=== PATIENT | male | born 1955 | race Caucasian/White ===

== ENCOUNTER 2023-05-01 07:00 | Outpatient (CLI) | payer MEDICARE, SELFPAY ==
--- NOTE | 2023-05-01 07:15 | MR_ITS ---
[address] [address] Phone:?[phone] Fax:?[phone] Referring Physician Information: Shelton Sibley M.D. [id number] [facility] [place] [address] Phone:?[phone] Fax:?[phone] Patient:Lola Upton D.O.B:?1955 Sex:?Male Phone:? [facility] MRN:?[id number] Exam Date:?05/01/2023 EXAM: MRI of the RIGHT SHOULDER, without contrast CLINICAL HISTORY: Right shoulder pain. Concern for rotator cuff tear. COMPARISONS: Plain radiographs 04/21/2023. TECHNICAL: MRI sequences of the right shoulder: Axials: PD, T2 Coronals: PD, STIR, T2 Sagittals: PD, T2 SEDATION: None CONTRAST: None FINDINGS: Bones: No fracture or suspicious bone marrow signal abnormality. Coracoacromial arch: Acromion: No os acromiale. Type I-II acromion. Acromiohumeral space: The bony distance is unremarkable. Acromioclavicular joint: Moderate degenerative changes with moderate inferior osteophytosis. Coracoclavicular ligament: The coracoclavicular ligament is intact. Rotator cuff muscles/tendons: Supraspinatus: There is a complete full-thickness tear of the supraspinatus tendon insertion with proximal/medial tendon retraction to the level of the mid humeral head. No atrophy of the supraspinatus muscle. Infraspinatus: Interstitial delamination and moderate tendinopathy of the infraspinatus tendon. No muscular atrophy. Teres minor: The teres minor tendon and muscle are intact. Subscapularis: Ill-definition, irregularity, and moderate attenuation of the superior portion of the subscapularis tendon measuring 3.0 cm in craniocaudad dimension are findings consistent with ill-defined moderate grade intrasubstance/interstitial partial tearing. No muscular atrophy. Labrum and glenohumeral joint: There is fraying and ill-defined tearing of most of the labrum, greatest superiorly and posterosuperiorly. No discrete chondral defect or subchondral bone marrow edema/cystic change is seen. No convincing evidence of capsular edema or thickening although evaluation is suboptimal because of lack of joint distention. Proximal biceps tendon, long head and short heads: There is medial subluxation of the proximal long head of the biceps tendon onto the lesser tuberosity extending into the intrasubstance/interstitial subscapularis tendon tearing. The short head is intact. Bursae: The presence of fluid is not expected given full-thickness rotator cuff tendon tearing.? IMPRESSION: 1. Complete full-thickness tear of the supraspinatus tendon insertion with proximal/medial tendon retraction to the level of the mid humeral head. 2. Ill-definition, irregularity, and moderate attenuation of the superior portion of the subscapularis tendon measuring 3.0 cm in craniocaudad dimension are findings consistent with ill-defined moderate grade intrasubstance/interstitial partial tearing. 3. Medial subluxation of the proximal long head of the biceps tendon onto the lesser tuberosity extending into the intrasubstance/interstitial subscapularis tendon tearing. 4. Interstitial delamination and moderate tendinopathy of the infraspinatus tendon. 5. No atrophy of the rotator cuff musculature. 6. Fraying and ill-defined tearing of most the labrum, greatest superiorly and posterosuperiorly. 7. Moderate acromioclavicular joint osteoarthritis. RCB Electronically signed on 05/01/2023 9:31:00 PM by Maicol Marques M.D.
== END 2023-05-01 07:01 | disposition home or self-care (01) ==
LOC: MRI 07:03
PROVIDERS: PCP Internal Medicine; Visit Provider Orthopaedic Surgery
DX: M25.511 Pain in right shoulder (principal); M75.101 Unspecified rotator cuff tear or rupture of right shoulder, not specified as traumatic; S46.211A Strain of muscle, fascia and tendon of other parts of biceps, right arm, initial encounter; S43.431A Superior glenoid labrum lesion of right shoulder, initial encounter; M19.011 Primary osteoarthritis, right shoulder; S49.91XA Unspecified injury of right shoulder and upper arm, initial encounter; T14.90XA Injury, unspecified, initial encounter
CPT/HCPCS: 73221

== ENCOUNTER 2023-06-14 07:08 | Day surgery (SDC) | payer MEDICARE, SELFPAY ==
[2023-06-14] VITALS (17 sets, daily range): BP systolic 92–168; BP diastolic 54–84; PULSE 48–68; RESP 16–18; TEMP 36.2–36.9; O2SAT 92–98; BMI 26.0
[2023-06-14] MEDS: fentaNYL 100 MCG/2 ML inj IVP (06:14)
[2023-06-14] MEDS: MIDAZOLAM HCL 1 MG/ML inj IVP (06:14)
[2023-06-14] MEDS: LACTATED RINGERS 1000 ML 1,000 ML 100 ML IV ×2 (06:15→09:50)
--- NOTE | 2023-06-14 07:40 | W.PM.H&PU ---
History & Physical Update History & Physical Update H&P Reviewed and patient assessed: No changes noted
[2023-06-14] MEDS: SODIUM CHLORIDE 0.9 % (FLUSH) 10 ML SYRINGE IVF (08:12)
--- NOTE | 2023-06-14 08:57 | SUR.PREOP ---
TIME?OUT:?0850 PT/RN/ALEM?VERIFICATION?OF?SURGICAL?SITE,?PROCEDURE,?AND?CONSENT OBTAINED?PRIOR?TO?INVASIVE?PROCEDURE.right damian Shelton MDA pt consent
--- NOTE | 2023-06-14 08:58 | W.PM.NB ---
Nerve Block Nerve Block Time Seen by Provider: 08:52 Date Seen: 06/14/23 Type of block requested by surgeon for post-operative analgesia: supraclavicular Side: right Time out performed: Yes Verification of patient name: Yes Verification of date of : Yes Site marking: site marked Name of person performing procedure: Nikita Continuous monitoring Was continuous monitoring of O2 sat, B/P, threat monitoring analyst, recorded every 15 minutes?: Yes Procedure Checklist: sterile prep, needles and gloves Ultrasound guided. Images saved: Yes Medications given in 5ml increments after negative aspiration: Ropivicaine %: 0.5 mL: 20 Needle gauge: 22 Decadron (mg): 10 Precedex (mcg): 25 Patient tolerated procedure well: Yes Block Charges Block Charge (with Pro Fee): Brachial Plexus Use of Ultrasound Machine for Block: Yes- US Guidance/pain block
--- NOTE | 2023-06-14 08:59 | W.ANESCHARGE ---
Anesthesia Charges Start Date/Time Anesthesia Start Date: 06/14/23 Anesthesia Start Time: 09:22 Stop Date/Time Anesthesia Stop Date: 06/14/23 Anesthesia Stop Time: :23 Summary Extremes of Age - Over 70 or under 1: MDA
--- NOTE | 2023-06-14 09:43 | P.ORPRC_ITS ---
Procedure Note Date of procedure: 06/14/23 Procedure: PREOPERATIVE DIAGNOSES: 1. Right shoulder rotator cuff tear. 2. Right shoulder subacromial impingement syndrome. POSTOPERATIVE DIAGNOSES: 1. Right shoulder rotator cuff tear - supraspinatus 2. Right shoulder subacromial impingement syndrome. 3. Partial-thickness tearing long head biceps tendon NAME OF OPERATION: 1. Right shoulder arthroscopic rotator cuff repair. 2. Right shoulder shoulder arthroscopic subacromial decompression 3. Right shoulder arthroscopic biceps tenotomy SURGEON: Erick Sibley MD EXPLOSIVE ORDNANCE DISPOSAL SPECIALIST: Jeremie DOWNS. An operations administrative assistant was critical for this case to aide in patient positioning, suture manipulation, arm positioning, instrument positioning, and closure. ANESTHESIA: General plus preoperative supraclavicular block. IMPLANTS: 4.75 mm Arthrex BioComposite knotless SwiveLock anchors x2; Single Arthrex 4.75 mm BioComposite SwiveLock suture anchor; single Arthrex 5.5 mm BioComposite SwiveLock anchor COMPLICATIONS: None evident ESTIMATED BLOOD LOSS: 5 mL INDICATIONS: The patient is a pleasant, 68-year-old male who has experienced right shoulder pain and weakness since injury that he sustained almost 2 months ago.. Physical exam and imaging were consistent with an acute rotator cuff tear. Given these findings, as well as the weakness and pain, and failure to improve with nonoperative management, recommendation was made for surgery. Prior to surgery risks and benefits were discussed with patient all questions were answered and informed consent was obtained. FINDINGS: Exam under anesthesia revealed stable shoulder with full range of motion. The diagnostic arthroscopy revealed healthy chondral surface of the glenohumeral joint. There was some degenerative tearing of the superior and anterior glenoid labrum. Intra-articular portion of the long head of the biceps tendon demonstrated significant fraying and partial-thickness tearing. The Subscapularis tendon was intact. The supraspinatus tendon had a complete full- thickness tear which was retracted medially 1-2 cm. Infraspinatus was intact. No loose bodies were identified within the pouch or subscapularis recess. PROCEDURE: Following a thorough discussion of risks, benefits, and alternatives, consent was obtained and the operative shoulder was marked. A supraclavicular nerve block was performed by anesthesia staff in preop holding. The patient was brought to the operating room and placed supine on the operating table. Induction of anesthesia was completed, and patient was given IV Ancef preoperatively for prophylaxis. A surgical time-out was performed confirming patient identity, surgical site, and procedure. Patient was placed into the beach chair position. Head was placed in padded global analytics head in neutral alignment, and all bony prominences were well padded. The operative shoulder and upper extremity were prepped and draped in the appropriate sterile fashion using ChloraPrep. The glenohumeral joint was injected with 40 mL of normal saline using and 18g spinal needle from a posterior approach. Posterior portal was established. Anterior portal was established after localization with a spinal needle and a 7.0 mm cannula was placed here. Diagnostic arthroscopy was then performed with findings as noted above. The shaver was then inserted and allowed debridement of the anterior superior labrum. Following this, biceps tenotomy was performed using arthroscopic scisso rs. After completion of the tenotomy labrum was probed and confirmed to be stable. Cam was then placed the subacromial space. A lateral portal was established after localization of spinal needle. Incomplete bursectomy and partial acromioplasty was performed with a combination of radiofrequency ablator and bone cutting shaver. Following this, further inspection of the rotator cuff was performed. This identified the tear as noted above. The margins of the tear were debrided, and the greater tuberosity was debrided with the shaver. After gentle decortication, a knotless FiberTak anchors placed in the anterior medial portion of the footprint, however this anchor pulled out. This was subsequently replaced with a 4.75 mm knotless SwiveLock anchor. A 2nd 4.75 mm knotless SwiveLock anchor was placed in the posterior medial aspect of the supraspinatus footprint. A FiberLink suture was then used to shuttle each set of sutures through the rotator cuff lateral to the musculotendinous junction. Using the knotless sutures medial repair was completed. Next the lateral row was completed using 14.75 mm SwiveLock anchor and 15.5 mm SwiveLock anchor which were placed lateral to supraspinatus footprint. Each anchor incorporated 1 FiberTape from the previously placed medial row anchors. Tapes were tensioned and the SwiveLock anchors were secured into position. Remnant sutures were cut and removed. The knotless sutures were tension final time-out remnant sutures were cut and removed. The shoulder was placed through range of motion and found to be stable. The rotator cuff was re-probed and found to be stable. Instruments were removed. Excess fluid was drained, closure performed with 4-0 nylon sutures. Dressings were applied. Abduction sling was applied. The patient was awoken from anesthesia and transferred to the PACU in stable condition. PLAN: 1. Discharged to home day of surgery. 2. Ice for pain and swelling. 3. Tylenol and oxycodone as needed for pain control. 4. Abduction sling at all times except for ROM and showering. -Remove sling several times daily for pendulum exercises finger, wrist, and elbow range of motion. 5. Follow-up in orthopedic clinic in 10-14 days for wound check and suture removal. 6. Will initiate formal physical therapy 2-3 weeks postoperatively per the standard rotator cuff repair protocol.
[2023-06-14] MEDS: CEFAZOLIN 2 GM INJ IVP (09:45)
[2023-06-14] MEDS: BUPIVACAINE 0.25 %/EPI 1:200K 30 ml INJECTION (10:22)
--- NOTE | 2023-06-14 11:23 | W.ANESCHARGE ---
Anesthesia Charges Start Date/Time Anesthesia Start Date: 06/14/23 Anesthesia Start Time: 09:22 Stop Date/Time Anesthesia Stop Date: 06/14/23 Anesthesia Stop Time: :23
[2023-06-14] MEDS: ONDANSETRON 2 MG/ML inj 4 MG IVP (12:39)
--- NOTE | 2023-06-14 12:50 | SUR.PHASEII ---
Pt slightly nauseated increased fluids and pt wanted to get up in chair for comfort
[2023-06-14] MEDS: METOCLOPRAMIDE HCL 5 MG/ML INJ 10 MG IVP (13:18)
--- NOTE | 2023-06-14 14:09 | SUR.PHASEII ---
Pt still a little nauseated v.s.s up to BR to void gait steady dc instructions gone over with pt and both seemed to uinderstand will allow to rest and dc to home shortly
== END 2023-06-14 14:14 | disposition home or self-care (01) ==
PROVIDERS: PCP Internal Medicine; Visit Provider Orthopaedic Surgery
PROC: (CPT 29805; principal; 2023-06-14 08:45)
DX: S46.011A Strain of muscle(s) and tendon(s) of the rotator cuff of right shoulder, initial encounter (principal); M75.41 Impingement syndrome of right shoulder; S46.111A Strain of muscle, fascia and tendon of long head of biceps, right arm, initial encounter; G89.18 Other acute postprocedural pain
CPT/HCPCS: 29827; 29828; 29826; 01630; 64415; 76942; 99100; C1713; J0330; J0690; J1100; J2250; J2405; J2704; J2710; J2765; J2795; J3010; J7120; L3670

== ENCOUNTER 2023-10-21 13:00 | Outpatient (RCR) | payer MEDICARE, SELFPAY ==
--- NOTE | 2023-06-26 12:30 | PT.OPE ---
PT [place] Outpatient Eval PT [facility] Outpatient Eval Start: 06/26/23 12:02 Freq: Status: Active Protocol: Document 06/26/23 12:08 [facility] (Rec: 06/26/23 12:28 [facility] [id number]) E-signed By Brian Alvares, PT, ATC Physical Therapy Outpatient Evaluation Insurance Information Insurance Name Medicare B Medical Diagnosis [id number] Status post right rotator cuff repair, other specified postprocedural states Treating Diagnosis R shoulder pain R shoulder stiffness Referring MD Sibley Subjective Subjective 68 year old right handed male received standard RCR 06-14-23. Post-op visit indicated good- normal healing. Referred to PT for standard RCR rehab protocol. Reports being run into by a horse on 04-19-23 which was mechanism for injury . Did report some R shoulder soreness and difficulty with resistive tasks over shoulder level last summer. Recovering in his home with assistance from his . Using Tylenol for pain (5/10 ave.) vs prescription medication. Icing regularly as advised. Chief complaint is difficulty sleeping-estimates max duration of two hours currently at any one time. 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 Sensation/Reflexes Normal and symetric Functional Test Performed & Score Quick Dash 81.82 score Assessment Assessment/Impression Ethan is a very pleasant 68 year old recovering from a R shoulder RCR on 06-13-23. He is having difficulty sleeping yet reports chronic history of sleep difficulty. Pain is rated a 5/10 most of the times , can increase if he actively moves the involved shoulder. Using his ice machine multiple times per day and performing the pendulum exercise as instructed. I advised him to move his body more and not the arm as he had been doing. Nice first day in therapy already meeting the ROM expectations. A fair amount of guarding exists yet he improved at relaxing as the session progressed. Skilled PT recommended for ROM, strength , scapular training, core stabilization and general body exercise. Pain control using ice and modalities as needed. Primary Functional Limitations Feeding Dressing Washing Toileting Plan of Care Rehabilitation Potential Good Physical Therapy Goals Week 6 1.R shoulder PROM limits FLEX and SCAP to 90 degrees. ER to neutral. Full elbow and wrist ROM. 2.Lessen R shoulder pain average to 3/10. 3.Improved comfort while sleeping up to 4 consecutive hours. Week 12 4.Normal scapular mechanics 5.AROM in R shoulder permitting ease with washing face, opposite shoulder and hair. 6.PROM FLEX 170, SCAP 170, ER 70 LTG 7.Full functional R shoulder AROM and strength permitting return to horse chores and self care. Coordination/Communication With Referral Source Treatment Plan/Direct Interventions Ice/Cold/Vasopneumatic,Joint Mobilization,Manual Therapy, Therapeutic Activities, Therapeutic Exercises Frequency/Duration 1-2x per week 16-20 weeks Patient Will Be Discharged From Therapy Independent w/HEP, Independently Progressing Evaluation Billing Untimed Code Treatment Minutes 30 PT Eval No Charge No Complexity Low Certification Information Initial Certification Date 06/26/23 Ending Certification Date 09/26/23 Provider Signature Shows Agreement With POC & Medical Necessity Physician Signature & Date Requested Please Sign/Date Here Physician Comment/Change : Physician NPI Number #
--- NOTE | 2023-09-02 11:35 | PT.OPDN ---
PT [place] Outpatient Daily Note PT [facility] Outpatient Daily Note Start: 06/26/23 12:02 Freq: Status: Active Protocol: Document 09/02/23 09:06 [facility] (Rec: 09/02/23 11:35 [facility] [id number]) E-signed By Ian Babcock, PT PT OP Daily Progress Note Visit Information Note Type Daily Note Visit Number 20 Insurance Information Insurance Name Medicare B Medical Diagnosis Z98.890 Status post right rotator cuff repair, other specified postprocedural states Treating Diagnosis R shoulder pain R shoulder stiffness Referring MD Sibley Subjective Subjective Pt discouraged with his progress. Is worried his surgery may have failed. Is scheduled to see Dr. Sibley tomorrow. Pt notes throbbing pain in his R shoulder as well as constant discomfort. Feels physical therapy has only caused his pain to increased rather than improve. He is also concerned that his difficulties with sleep is not allowing his shoulder to heal appropriately. Pt has not been taking any pain medication as of late as he feels it is not helpful and does not want to mask his pain . Preferred Name Ethan Precautions Treatment Precautions/Contraindications DOS: 06/14/23 Objective Other/Pertinent Objective R shoulder flexion: 85 degrees R shoulder IR: L4 R shoulder ER in neutral: 30 degrees R shoulder ER at 90 degrees abduction: 50 degrees Functional Test Performed & Score Quick Dash 81.82 score Patient Instructed in Risks/Benefits Yes Therapeutic Exercise Therapeutic Exercise Minutes (minutes) 24 Therapeutic Exercise: To Restore -UBE x 5 min.s AAROM Functional Status -Pulleys into flexion - 5 minutes -Shoulder flexion AROM x 10 -supine shld ABD to 70 degrees 2x10 -Wall shoulder flexion stretch x 45 -Post capsule stretch x 60 -Shoulder ER stretch x 45 -Shoulder IR stretch behind back x 45 Manual Therapy Techniques Manual Therapy Minutes (minutes) 16 Manual Therapy Techniques STM performed to R UT, levator , pec minor/major, LHBT, rhomboids, thoracic paraspinals, infraspinatus, subscapularis, and teres group to reduce tissue tension and improve extensibility. Grade II-III STJ mobilizations in all directions to facilitate motion and diminish adhesions Treatment Minutes Timed Code Treatment Minutes 40 Total Treatment Time 40 Billing Units Manual Therapy Units 1 Therapeutic Exercise Units 2 Assessment/Impression Assessment/Impression Ethan is very concerned that his surgery has failed. Pt notes that his pain has only worsened with physical therapy and has been very discouraged and asks if an extended break from PT will be beneficial for him. Today was my first appointment with Ethan as Brian Alvares has served as his primary PT since surgery. Ethan's shoulder presents with significant guarding while at rest as well as during PROM and AAROM exercises. Passively I am able to elevate his shoulder to 145 degrees but he is only able to elevate 85 degrees actively. There is much muscle tissue tension about his R shoulder and I do think this is limiting his range and contributing to his pain. While I am not sure if damage occurred to his supraspinatus tendon, Ethan did note absence of pain in empty can testing position. Empty can and Whipple testing were both negative for pain this date which is reassuring. Today I tried my best to encourage Ethan to push forward with his exercises and discussed the importance of stretching to reduce muscle tissue tension and improve his pain. Today I issued a new HEP with quadrant stretching. He should hold each of these stretches for 45 seconds and perform 2-3 times daily. He gives verbal understanding to these instructions. I have also encouraged Ethan to bring several of his questions to Dr. Sibley tomorrow during his f/u appointment and he gives verbal understanding. Recommend continued PT services to address deficits and return pt to highest level of function. Plan of Care Physical Therapy Goals Week 6 1.R shoulder PROM limits FLEX and SCAP to 90 degrees. ER to neutral. Full elbow and wrist ROM. 2.Lessen R shoulder pain average to 3/10. 3.Improved comfort while sleeping up to 4 consecutive hours. Week 12 4.Normal scapular mechanics 5.AROM in R shoulder permitting ease with washing face, opposite shoulder and hair. 6.PROM FLEX 170, SCAP 170, ER 70 LTG 7.Full functional R shoulder AROM and strength permitting return to horse chores and self care. Daily Plan of Care Continue per POC Daily Plan of Care Comments Progress through second phase of RCR protocol Recertification Information Provider Signature Shows Agreement With POC & Medical Necessity
--- NOTE | 2023-09-23 14:54 | PT.OPDN ---
[facility] Daily Note PT [facility] Daily Note Start: 06/26/23 12:02 Freq: Status: Active Protocol: Document 09/23/23 14:31 JOSEPHINE (Rec: 09/23/23 14:47 JOSEPHINE [id number]) E-signed By Brian Alvares, PT, ATC PT OP Daily Progress Note Visit Information Note Type Daily Note,Recert/Progress Note Visit Number 25 Insurance Information Insurance Name Medicare B Medical Diagnosis [id number] Status post right rotator cuff repair, other specified postprocedural states Treating Diagnosis R shoulder pain R shoulder stiffness Referring MD Sibley Subjective Subjective At approximately the 3 month shagufta, Ethan is surprised with his continued R shoulder discomfort and limited active ROM. He did not understand the length of time the recovery was to take, especially with the onset of probable adhesive capsulitis. He feels the therapy is still important and the frequency of 1x per week seems appropriate . He works with his home program near daily. Since slowing down the intensity of exercise and therapy, he feels the shoulder has been feeling better. Preferred Name Ethan Precautions Treatment Precautions/Contraindications DOS: 06/14/23 Objective Other/Pertinent Objective R shoulder flexion: 85 degrees R shoulder IR: L4 R shoulder ER in neutral: 30 degrees R shoulder ER at 90 degrees abduction: 50 degrees Functional Test Performed & Score Quick Dash 81.82 score Patient Instructed in Risks/Benefits Yes Therapeutic Exercise Therapeutic Exercise Minutes (minutes) 40 Therapeutic Exercise: To Restore -UBE x 10 min.s AAROM Functional Status -Pulleys into flexion - 5 minutes -wand into flexion, scaption and abduction x 5 min -cable rows 2x15 3.5 plates -cable seated ext 2x10 1.5 plate -cable seated adduc 1.5 plates 2x10, stretching into flex with cable resistance. -tband ER red and IR green tband 3x10, pain free ranges -sidelying ER 3x10 2# -bent over or supine R shld EXT 2# 2x10 each -bent over R shld horz ABD 1# 2x10 -bent over R shld rows 5# 2x10 -standing flex to 100 degrees with step forward onto L leg. -Shoulder flexion AROM x 10 -Shoulder abd standing, 2x10 Manual Therapy Techniques Manual Therapy Minutes (minutes) 10 Manual Therapy Techniques STM performed to R UT, levator , pec minor/major, LHBT, rhomboids, thoracic paraspinals, infraspinatus, subscapularis, and teres group to reduce tissue tension and improve extensibility. Grade II-III STJ mobilizations in all directions to facilitate motion and diminish adhesions Treatment Minutes Timed Code Treatment Minutes 50 Total Treatment Time 50 Billing Units Manual Therapy Units 1 Therapeutic Exercise Units 2 Assessment/Impression Assessment/Impression AROM/PROM R shoulder: FLEX 100/140 ABD 80/90 ER 40/60 Ethan remains concerned with his progress, continued discomfort and inability for ADL performance as expected for 3 months s/p surgery. His compliancy with ex is effected by his pain level which causes decreased performance. I've asked that he research Adhesive Capsulitis to better understand why he continues to have shoulder pain and limitations with ROM as well as see the length of recovery this adds. He needs to keep the range we've developed by practicing his AAROM daily! I suggest we reduce PT to 1x per week going forth with expectation for increased self performance. Plan of Care Physical Therapy Goals 1.R shoulder active FLEX 140, ABD 90, ER 60. 2.Lessen R shoulder pain average to 3/10 at end range- active. 3.Improved comfort while sleeping up to 4 consecutive hours. 4.Normal scapular mechanics 5.AROM in R shoulder permitting ease with washing face, opposite shoulder and hair. 6.PROM FLEX 170, SCAP 170, ER 70 LTG 7.Full functional R shoulder AROM and strength permitting return to horse chores and self care. Daily Plan of Care Continue per POC Daily Plan of Care Comments Because of probable adhesive capsulitis, Ethan should not be forced into end range stretches. Rather long duration holds at entrance to discomfort with slight overpressure as pain subsides encouraged. Continue to work isotonic and band strengthening within pain free ranges. I would suggest continuing therapy an additional 1-3 months while he progresses through both the R shoulder RCR and Adhesive capsulitis. His progress has shown good gains the past few weeks, especially with active range. I'd like to further these while lessening post ex discomfort before discontinuing PT. Recertification Information Initial Certification Date 06/26/23 Recertification Start Date 09/23/23 Recertification Due Date 12/22/23 Reasons to Continue Skilled Therapy Ultimate progress and goal achievement limited by development of adhesive capsulitis in the involved shoulder. Rehabilitation Potential good Provider Signature Shows Agreement With POC & Medical Necessity
== END 2024-02-18 23:59 | disposition home or self-care (01) ==
PROVIDERS: PCP Internal Medicine; Visit Provider Orthopaedic Surgery
DX: Z98.890 Other specified postprocedural states (principal); Z51.89 Encounter for other specified aftercare
CPT/HCPCS: 97110; 97140; 97161